=== PATIENT | female | born 1990 | race Hispanic/Latino ===

== ENCOUNTER 2024-09-01 22:51 | Emergency (ER) | payer BC, MEDICAID ==
[~2024-09-01] VITALS: Ht 157.5 cm; Wt 86.2 kg
[2024-09-01] MEDS: Solu-medROL 125MG VIAL IVP ONE (23:06)
[2024-09-01] MEDS: DiphenhydrAMINE HCL 50 MG/ML VIAL IV ONE (23:06)
[2024-09-01] MEDS: FAMOTIDINE 20MG VIAL IV ONE (23:06)
[2024-09-01] MEDS: 0.9%NACL 1000ML 1,000 ML IV ONE (23:06)
[2024-09-02] MEDS ORDERED: FAMO-136 PO (00:14)
[2024-09-02] MEDS ORDERED: DIPH50 PO (00:14)
--- NOTE | 2024-09-02 00:15 | ERN ---
ED Note History of Present Illness Stated Complaint: C/O REDNESS WITH SWELLING TO FACE AFTER BEE STING Chief Complaint: Allergic Reaction Time Seen by MD: 22:55 Time Seen by Midlevel: 22:55 Dictation: The patient is a 33-year-old female with no past medical history who presents to the emergency department with generalized itching and hives onset 30 minutes ago after she was bitten by a bee on her right breast. Patient denies any shortness of breath or dyspnea. Allergies: Coded Allergies: No Known Drug Allergies (Verified Allergy, 11/30/11) Home Meds Active Scripts Diphenhydramine HCl (Benadryl) 50 Mg Cap, 50 MG PO Q6H for itching/rash, #20 CAP 0 Refills Prov:DIVINA HUNTLEY [facility] 09/02/24 Famotidine (Pepcid) 20 Mg Tablet, 1 TAB PO DAILY for 5 Days, #60 TAB 0 Refills Prov:DIVINA HUNTLEY [facility] 09/02/24 Past Medical History Past Medical History: No Pertinent History Surgical History: None LMP: Sep 01, 2024 RN Note Reviewed/Agreed w/PFSH: Yes Review of System Dictation Constitutional: Negative for fever,chills, and weight loss Eyes: Negative for injury, pain,redness, and discharge ENT: Negative for injury,pain or swelling Cardiovascular: Negative for chest pain, palpitations, and edema Respiratory: Negative for shortness of breath, cough, and wheezing, Abdomen/GI: Negative for abdominal pain, nausea, vomiting, diarrhea, and constipation Back: Negative for injury and pain : Negative for injury, bleeding and discharge MS/Extremity: Negative for injury and deformity Skin: Negative for rash, and discoloration positive for hives, itchiness Neuro: Negative for headache, weakness, numbness, tingling, and seizure Psych: Negative for suicide ideation, homicidal ideation, and hallucinations Initial Vital Sign VS Vital Signs Date Time Temp Pulse Resp B/P (MAP) Pulse Ox O2 Delivery O2 Flow Rate FiO2 09/01/24 22:53 98.2 75 20 164/83 97 Room Air 09/01/24 23:24 0 21 Physical Exam Dictation Vital Signs reviewed General Appearance: Alert, oriented x 3, no acute distress, well developed, nourished. Head and Face: non-traumatic. Eyes: PERRL, pink conjunctivas, eyelid no trauma, anterior chamber with arcus senilis. Ears: Pinnas intact and no signs of trauma or erythema ear canals clear and no discharge TM no erythema Nose: No discharge, no bleeding. Oropharynx: Mouth normal, tongue pink. pharynx clear,no erythema, tonsils no exudates, no abscesses noted, mucous membrane moist Neck: Supple, non-tender, no thyromegaly, no masses, no JVD, no bruits Breast:Deferred Chest:No tenderness, no crepitus, no paradoxical movement, no retractions Lungs:Clear, well-ventilated, symmetric, no rales, no wheezing, no rhonchi, no stridor, good breath sounds bilaterally Heart: Regular rate, regular rhythm, no murmur, no gallops Vascular: no peripheral edema, Abdomen: Soft, positive bowel sounds, nondistended, no guarding, nontender, no rebound, no masses no hepatomegaly, no splenomegaly, no Simpson's sign, no hernias. Rectal: Deferred Genital: Deferred Neurological: Normal speech, motor function intact, sensory function intact Musculoskeletal: Neck nontender, full range of motion, back nontender, full range of motion, Extremities: nontender, full range of motion Skin: Color pink, dry, no turgor, no rash, no lacerations, no abrasions, no contusions. Generalized hives to torso, back, hives noted to face Lymphatic: Deferred Results (Laboratory/Radiology) Labs Reviewed?: Yes ED Course ED Course Orders Procedure Category Date Status Time Famotidine 20mg Vial PHA 09/01/24 Complete (Pepcid 20mg Vial) 23:00 Methylprednisolone PHA 09/01/24 Complete Succ 125mg (Solu-Medr 23:00 Diphenhydramine Hcl PHA 09/01/24 Complete (Benadryl Inj) 23:00 0.9%Nacl 1000ml (Ns PHA 09/01/24 Complete 1000ml) 23:00 Current Medications Medications (Trade) Dose Ordered Sig/Emperatriz Route PRN Reason Start Time Stop Time Status Last Admin Dose Admin Diphenhydramine HCl (BENAdryl INJ) 50 mg ONCE ONCE IV 09/01/24 23:00 09/01/24 23:02 DC 09/01/24 23:06 Famotidine (Pepcid 20mg Vial) 20 mg ONCE ONCE IV 09/01/24 23:00 09/01/24 23:03 DC 09/01/24 23:06 Methylprednisolone Sodium Succinate (Solu-medROL 125MG) 125 mg ONCE ONCE IVP 09/01/24 23:00 09/01/24 23:02 DC 09/01/24 23:06 Sodium Chloride 1,000 ml @ 0 mls/hr ONCE ONCE IV 09/01/24 23:00 09/01/24 23:02 DC 09/01/24 23:06 Vital Signs Date Time Temp Pulse Resp B/P (MAP) Pulse Ox O2 Delivery O2 Flow Rate FiO2 09/02/24 00:15 98.2 79 18 147/79 100 Room Air* 0 21 09/01/24 23:24 87 18 151/77 100 Room Air* 0 21 09/01/24 22:53 98.2 75 20 164/83 97 Room Air Medical Decision Making MDM The patient is a 33-year-old female with no past medical history who presents to the emergency department with generalized itching and hives onset 30 minutes ago after she was bitten by a bee on her right breast. Patient denies any shortness of breath or dyspnea. Patient with no stinger noted to right breast. Reports up-to-date with vaccines. Patient was treated with a Benadryl, fluids, Pepcid and Solu-Medrol. Patient is significantly improved of hives. Patient no longer having any hives. Patient with a clear lung sounds, no swelling to tongue or lip. Patient with no significant swelling to face. Patient continues denying shortness of breath. Patient with stable vital signs. No acute distress. Will be discharged to follow up with PCP. Differential diagnosis: Acute urticaria, allergic reaction, cellulitis Need for hospitalization: Patient does not meet criteria for hospitalization. There are no social concerns with this patient. DX & DISP Disposition: Discharge Departure Impression: Primary Impression: Allergic reaction Additional Impression: Acute urticaria Condition: Stable Scripts Diphenhydramine HCl (Benadryl) 50 Mg Cap 50 MG PO Q6H for itching/rash, #20 CAP 0 Refills Prov: DIVINA HUNTLEY [employer] 09/02/24 Famotidine (Pepcid) 20 Mg Tablet 1 TAB PO DAILY for 5 Days, #60 TAB 0 Refills Prov: DIVINA HUNTLEY [employer] 09/02/24 Additional Instructions: Please avoid any contact with allergens.. Take your medications as prescribed. Continue to monitor at home for any signs of swelling to lips, tongue, shortness of breath. If symptoms develop or worsen please return to ER. You can continue taking Benadryl as needed for the allergic reaction. FOLLOW-UP WITH PRIMARY CARE PROVIDER IN 1 TO 2 DAYS. TAKE MEDICATIONS DIRECTED HERE IN THE EMERGENCY ROOM. OKAY TO CONTINUE HOME MEDICATIONS UNLESS OTHERWISE DISCUSSED DURING YOUR VISIT IN THE EMERGENCY ROOM TODAY. RETURN TO YOUR NEAREST EMERGENCY ROOM IF SYMPTOMS WORSEN OR IF THERE IS NO IMPROVEMENT. CALL 911 IF YOU NEED IMMEDIATE ASSISTANCE. TAKE TYLENOL OR MOTRIN OV [id number] NEEDED AND IF NO CONTRAINDICATIONS ARE PRESENT. INCREASE ORAL HYDRATION. A WOUND CULTURE OR URINE CULTURE WAS ORDERED HERE IN THE EMERGENCY ROOM DEPARTMENT PLEASE FOLLOW-UP WITH PRIMARY CARE PROVIDER AND ADVISE THEM TO GET REPEAT PORTS FROM OUR FACILITY. IF YOU HAD ANY GOGO WRAP/SPLINTS THAT WERE APPLIED HERE, PLEASE DO NOT REMOVE THEM UNTIL YOU SEE YOUR PRIMARY CARE OR SPECIALTY. Referrals: RUDY ROMEO MD (PCP) Time of Disposition: 00:42 I have reviewed the case, and I agree with, Diagnosis and Plan DIVINA HUNTLEY Sep 02, 2024 00:15
[2024-09-02 00:58] VITALS: BP 139/71; PULSE 74; RESP 18; TEMP 98.2; O2SAT 100
== END 2024-09-02 00:59 | disposition home or self-care (01) ==
LOC: EDH 22:51
DX: T78.40XA Allergy, unspecified, initial encounter (principal); L50.9 Urticaria, unspecified; Z79.899 Other long term (current) drug therapy; X58.XXXA Exposure to other specified factors, initial encounter
CPT/HCPCS: 99284; 96374; 96375; J2919; J1200; J3490; J7030